=== PATIENT | female | born 1940 | race Caucasian/White ===

== ENCOUNTER 2021-01-03 09:18 | Inpatient (IN) | payer MEDICARE, BC ==
[2021-01-03 09:52] LABS: Actual Bicarbonate (HCO3a) 20.9 mEq/L (22-28); Base Excess (BEa) -9.4 mEq/L (-2.0 to +3.0); Carboxyhemoglobin (COHb) 0.5 gm% (0.0-3.0); Hemoglobin (Hb) 12.5 g/dL (12.0-16.0); O2 Tension (PaO2), arterial 91.2 mmHg (> 60.0); Potassium - ABG Lab 5.8 mmol/L (3.70-5.30); Puncture Site LRA; pH, Arterial 7.11 (7.35-7.45)
[2021-01-03 10:00] LABS: #Basophils 0.1 10x3/uL (0.0-0.2); #Eosinphils 0.1 10x3/uL (0.0-0.5); #Monocytes 1.4 10x3/uL (0.0-1.1); #Neutrophils 7.9 10x3/uL (1.5-8.4); %Basophils 0.7 % (0.0-2.0); %Eosinophils 0.6 % (0.0-6.0); %Lymphocytes 21.4 % (18.0-47.0); %Monocytes 11.4 % (0.0-10.0); %Neutrophils 64.8 % (40.0-75.0); Hemoglobin 11.5 g/dL (12.0-15.5); Mean Corpuscular HGB CONC 29.3 g/dL (32.0-36.0); Mean Corpuscular Hemoglobin 29.3 pg (27.0-33.0); Platelet Count 461 10x3/uL (150-450); RBC Distribution Width 15.6 % (11.5-14.5); Red Blood Cell (RBC) Count 3.92 10x6/uL (3.90-5.03); White Blood Cell (WBC) Count 12.2 10x3/uL (3.5-10.5)
[2021-01-03 10:02] LABS: ALT (SGPT) 14 U/L (8-55); AST (SGOT) 29 U/L (5-34); Albumin 3.2 g/dL (3.4-4.8); Alkaline Phosphatase 125 U/L (40-110); Anion Gap 19 mmol/L (10-20); BUN (Urea Nitrogen) 58 mg/dL (9.8-20.1); Bilirubin, Total 0.3 mg/dL (0.2-1.2); Calc. Creatinine Clearance 0 mL/min (70-130); Calcium 7.9 mg/dL (7.8-10.44); Carbon Dioxide 21 mmol/L (23-31); Chloride 101 mmol/L (98-107); Globulin 2.4 g/dL (2.4-3.5); Glucose 135 mg/dL (83-110); Potassium 6.4 mmol/L (3.5-5.1); Protein, Total 5.6 g/dL (5.8-8.1); Sodium 135 mmol/L (136-145)
[2021-01-03 10:03] LABS: INR-International Normal Ratio 1.1; PTT 30.8 sec (22.0-33.0); Prothrombin Time 11.2 sec (9.5-12.1)
[2021-01-03 10:47] LABS: Bilirubin Neg (Negative); Blood, Urine 25 (Negative); Clarity Cloudy (Clear); Glucose, Urine (Dipstick) Normal (Negative); Ketone, Urine Negative (Negative); Leukocyte 500 (Negative); Nitrite Negative (Negative); Protein, Urine (Dipstick) 100 mg/dl (Neg-Trace); Specific Gravity, Urine 1.025 (1.002-1.036); Urobilinogen Normal mg/dL (Less than 2)
[2021-01-03 11:11] LABS: Hypochromia SLIGHT = 6-15 cells (100X) (0-5/hpf); Platelet Morphology Comment Appears Increased
[2021-01-03 11:27] LABS: SARS-CoV-2 NAA Rapid Test Not Detected (NotDetected)
[2021-01-03 11:37] LABS: WBC/HPF Greater Than 50 HPF (0-3)
[2021-01-03 11:39] LABS: Bacteria/HPF Rare-Few HPF (None Seen)
[2021-01-03] MEDS ORDERED: Aspirin 325 MG TAB ONE (12:01)
[2021-01-03] MEDS ORDERED: Calcium Chloride 1 GM/10 ML Abboject SYRINGE ONE (12:01)
[2021-01-03] MEDS ORDERED: Nitroglycerin 2% Ointment 1 INCH/1 GM Packet ONE (12:01)
[2021-01-03] MEDS ORDERED: Furosemide 40 MG/4 ML VIAL ONE (12:01)
[2021-01-03] MEDS ORDERED: Insulin Regular 300 UNITS/3 ML VIAL ONE (12:07)
[2021-01-03 12:44] LABS: Actual Bicarbonate (HCO3a) 21.9 mEq/L (22-28); CO2 Tension 60.9 mmHg (35.0-45.0); Calcium, Ionized (arterial) 1.43 mmol/L (1.12-1.30); Carboxyhemoglobin (COHb) 0.2 gm% (0.0-3.0); Hemoglobin (Hb) 11.8 g/dL (12.0-16.0); O2 Tension (PaO2), arterial 88.4 mmHg (> 60.0); Potassium - ABG Lab 5.6 mmol/L (3.70-5.30); Puncture Site LRA; pH, Arterial 7.17 (7.35-7.45)
[2021-01-03 12:45] LABS: ALV-art Gradient 85.025 mmHg (0-20)
[2021-01-03 13:07] LABS: Troponin I 0.016 ng/mL (< 0.028)
[2021-01-03] MEDS ORDERED: Dextrose 50% Abboject 50 ML SYRINGE SLOW IVP PRN (14:50)
[2021-01-03] MEDS ORDERED: Ondansetron PF 4 MG/2 ML Vial IVP PRN (14:50)
[2021-01-03] MEDS ORDERED: Guaifenesin DM 100-10/5 ML UDCUP PO PRN (14:50)
[2021-01-03] MEDS ORDERED: Acetaminophen 325 MG TAB PO PRN (14:50)
[2021-01-03] MEDS ORDERED: Ondansetron ODT 4 MG TAB PO PRN (14:50)
[2021-01-03] MEDS ORDERED: Dextrose 5% in Water 1,000 ML IV PRN (14:50)
[2021-01-03] MEDS ORDERED: hydrALAZINE 20 MG/ML VIAL SLOW IVP PRN (14:50)
[2021-01-03] MEDS ORDERED: Furosemide 40 MG/4 ML VIAL SLOW IVP SCH (16:00)
[2021-01-03 16:08] LABS: Anion Gap 18 mmol/L (10-20); BUN (Urea Nitrogen) 60 mg/dL (9.8-20.1); Calc. Creatinine Clearance 40 mL/min (70-130); Calcium 8.1 mg/dL (7.8-10.44); Carbon Dioxide 19 mmol/L (23-31); Chloride 104 mmol/L (98-107); Glucose 145 mg/dL (83-110); Sodium 134 mmol/L (136-145)
[2021-01-03 16:13] LABS: Troponin I 0.018 ng/mL (< 0.028)
[2021-01-03 16:16] LABS: Potassium 6.7 mmol/L (3.5-5.1)
[2021-01-03 17:27] LABS: Actual Bicarbonate (HCO3a) 20.2 mEq/L (22-28); Base Excess (BEa) -7.5 mEq/L (-2.0 to +3.0); CO2 Tension 50.7 mmHg (35.0-45.0); Calcium, Ionized (arterial) 1.19 mmol/L (1.12-1.30); Carboxyhemoglobin (COHb) 0.3 gm% (0.0-3.0); Hemoglobin (Hb) 12.1 g/dL (12.0-16.0); O2 Tension (PaO2), arterial 152.2 mmHg (> 60.0); Potassium - ABG Lab 5.6 mmol/L (3.70-5.30); Puncture Site RRA; pH, Arterial 7.22 (7.35-7.45)
[2021-01-03 17:28] LABS: ALV-art Gradient 69.625 mmHg (0-20)
[2021-01-03] MEDS: Budesonide 0.25 MG/2 ML NEB INH SCH (19:52)
[2021-01-03 20:53] LABS: Hep B Surf Ag Non-Reactive S/CO (NonReactive)
[2021-01-03] MEDS ORDERED: Famotidine 20 MG TAB PO SCH (21:00)
[2021-01-03 21:52] LABS: HBSAg Index 0.16 S/CO (0-0.99)
[2021-01-03] MEDS: Atorvastatin Calcium 20 MG TAB PO SCH (22:30)
[2021-01-03] MEDS ORDERED: Famotidine/PF 20 mg/2ml Vial SLOW IVP SCH (23:00)
[2021-01-04 04:35] LABS: Anion Gap 16 mmol/L (10-20); BUN (Urea Nitrogen) 53 mg/dL (9.8-20.1); Calc. Creatinine Clearance 41 mL/min (70-130); Calcium 8.1 mg/dL (7.8-10.44); Carbon Dioxide 23 mmol/L (23-31); Chloride 102 mmol/L (98-107); Glucose 112 mg/dL (83-110); Potassium 5.4 mmol/L (3.5-5.1); Sodium 136 mmol/L (136-145)
[2021-01-04 04:40] LABS: #Basophils 0.1 10x3/uL (0.0-0.2); #Eosinphils 0.1 10x3/uL (0.0-0.5); #Monocytes 1.5 10x3/uL (0.0-1.1); #Neutrophils 8.6 10x3/uL (1.5-8.4); %Basophils 0.6 % (0.0-2.0); %Lymphocytes 15.3 % (18.0-47.0); %Monocytes 12.3 % (0.0-10.0); Hemoglobin 10.6 g/dL (12.0-15.5); Mean Corpuscular HGB CONC 31.1 g/dL (32.0-36.0); Mean Corpuscular Volume 96.6 fl (81.6-98.3); Platelet Count 403 10x3/uL (150-450); RBC Distribution Width 15.5 % (11.5-14.5); Red Blood Cell (RBC) Count 3.53 10x6/uL (3.90-5.03); White Blood Cell (WBC) Count 12.3 10x3/uL (3.5-10.5)
[2021-01-04] MEDS: Furosemide 40 MG/4 ML VIAL SLOW IVP SCH ×2 (06:03→14:49)
[2021-01-04] MEDS ORDERED: Albumin 25% 25 GM/100 ML BOT IVPB PRN (08:31)
[2021-01-04] MEDS: Aspirin 81 mg Enteric Coated Tablet PO SCH (08:36)
[2021-01-04] MEDS: Budesonide 0.25 MG/2 ML NEB INH SCH ×2 (08:37→19:30)
[2021-01-04] MEDS: Famotidine/PF 20 mg/2ml Vial SLOW IVP SCH (08:38)
[2021-01-04] MEDS ORDERED: FLU VACC QS2020-21(65YR UP)/PF 240 MCG/0.7 ML SYRINGE IM ONE (09:00)
[2021-01-04] MEDS ORDERED: Enoxaparin Sodium 30 MG/0.3 ML SYRINGE SC SCH (09:00)
[2021-01-04 10:51] LABS: HBSAB Concentration Less than 8.00 mIU/mL; Hep B Core Total Ab Non-Reactive (NonReactive); Hep B Core Total Index 0.11 S/CO (0-0.79); Hep B Surf AB Non-Reactive (NonReactive); Hep C IgG Ab Non-Reactive (NonReactive); Hep C Index 0.07 S/CO (0-0.79)
[2021-01-04] MEDS: Heparin 5,000 UNITS/ML VIAL SC SCH ×2 (14:49→21:03)
[2021-01-04] MEDS: Atorvastatin Calcium 20 MG TAB PO SCH (21:03)
[2021-01-05] MEDS ORDERED: Ziprasidone 20 MG VIAL IM SCH (01:45)
[2021-01-05] MEDS ORDERED: Sterile Water 10 ML VIAL FS PRN (02:00)
[2021-01-05] MEDS: Furosemide 40 MG/4 ML VIAL SLOW IVP SCH (05:57)
[2021-01-05] MEDS: Budesonide 0.25 MG/2 ML NEB INH SCH ×2 (08:22→22:50)
[2021-01-05] MEDS ORDERED: Albumin 25% 25 GM/100 ML BOT IVPB PRN (08:34)
[2021-01-05] MEDS: Aspirin 81 mg Enteric Coated Tablet PO SCH (08:39)
[2021-01-05] MEDS: Heparin 5,000 UNITS/ML VIAL SC SCH ×2 (08:39→20:42)
[2021-01-05] MEDS: Famotidine/PF 20 mg/2ml Vial SLOW IVP SCH (08:39)
[2021-01-05] MEDS: Atorvastatin Calcium 20 MG TAB PO SCH (21:00)
[2021-01-06 05:45] LABS: Anion Gap 17 mmol/L (10-20); BUN (Urea Nitrogen) 27 mg/dL (9.8-20.1); Calc. Creatinine Clearance 47 mL/min (70-130); Calcium 8.7 mg/dL (7.8-10.44); Carbon Dioxide 25 mmol/L (23-31); Chloride 102 mmol/L (98-107); Glucose 100 mg/dL (83-110); Potassium 4.6 mmol/L (3.5-5.1); Sodium 139 mmol/L (136-145)
[2021-01-06] MEDS: Budesonide 0.25 MG/2 ML NEB INH SCH ×2 (07:35→19:50)
[2021-01-06] MEDS: Heparin 5,000 UNITS/ML VIAL SC SCH ×2 (07:54→20:05)
[2021-01-06] MEDS: Aspirin 81 mg Enteric Coated Tablet PO SCH (07:54)
[2021-01-06] MEDS: Famotidine/PF 20 mg/2ml Vial SLOW IVP SCH (07:54)
[2021-01-06] MEDS ORDERED: Albumin 25% 25 GM/100 ML BOT IVPB PRN (12:23)
[2021-01-06] MEDS: Acetaminophen 650 MG Suppository PR PRN (19:59)
[2021-01-06] MEDS: Atorvastatin Calcium 20 MG TAB PO SCH (20:06)
[2021-01-07] MEDS ORDERED: Morphine 2 MG/ML VIAL SLOW IVP SCH (00:15)
[2021-01-07 05:45] LABS: Anion Gap 14 mmol/L (10-20); BUN (Urea Nitrogen) 20 mg/dL (9.8-20.1); Calc. Creatinine Clearance 53 mL/min (70-130); Calcium 8.5 mg/dL (7.8-10.44); Carbon Dioxide 27 mmol/L (23-31); Chloride 100 mmol/L (98-107); Glucose 102 mg/dL (83-110); Potassium 3.6 mmol/L (3.5-5.1); Sodium 137 mmol/L (136-145)
[2021-01-07 06:01] LABS: Hemoglobin 9.8 g/dL (12.0-15.5); Mean Corpuscular HGB CONC 30.1 g/dL (32.0-36.0); Mean Corpuscular Hemoglobin 29.4 pg (27.0-33.0); Mean Corpuscular Volume 97.9 fl (81.6-98.3); Mean Platelet Volume 10.6 fl (7.4-10.4); Platelet Count 268 10x3/uL (150-450); RBC Distribution Width 15.6 % (11.5-14.5); Red Blood Cell (RBC) Count 3.33 10x6/uL (3.90-5.03); White Blood Cell (WBC) Count 17.6 10x3/uL (3.5-10.5)
[2021-01-07] MEDS: Acetaminophen 650 MG Suppository PR PRN (06:15)
[2021-01-07 07:11] LABS: Band 3 % (5-11); Lymphocytes 14 % (21-51); Monocytes 23 % (0-10); Neutrophil 53 % (42-75); Reactive Lymphocytes 7 % (0-10)
[2021-01-07 07:13] LABS: Anisocytosis SLIGHT = 6-15 cells (100X) (0-5/hpf); Microcytosis SLIGHT = 6-15 cells (100X) (0-5/hpf); Poikilocytosis SLIGHT = 6-15 cells (100X) (0-5/hpf)
[2021-01-07 07:26] LABS: Burr Cells SLIGHT = 2-5 cells (100X) (0-1/hpf)
[2021-01-07 07:27] LABS: Ovalocytes SLIGHT = 2-5 cells (100X) (0-1/hpf)
[2021-01-07 07:28] LABS: Large Platelets SLIGHT; Manual Diff?? YES; Platelet Clumps SLIGHT; Platelet Morphology Comment Appears Adequate
[2021-01-07 07:29] LABS: MDiff Complete? YES
[2021-01-07] MEDS: Heparin 5,000 UNITS/ML VIAL SC SCH ×2 (07:58→19:48)
[2021-01-07] MEDS: Famotidine/PF 20 mg/2ml Vial SLOW IVP SCH (07:58)
[2021-01-07] MEDS: Budesonide 0.25 MG/2 ML NEB INH SCH ×2 (10:43→19:45)
[2021-01-07] MEDS ORDERED: Sodium Chloride 0.9% 500 ML IV SCH (12:15)
[2021-01-07 13:20] LABS: Bilirubin Neg (Negative); Blood, Urine 150 (Negative); Glucose, Urine (Dipstick) 50 mg/dL (Negative); Ketone, Urine 15 mg/dL (Negative); Leukocyte 25 (Negative); Nitrite Negative (Negative); Protein, Urine (Dipstick) 500 mg/dl (Neg-Trace); Urobilinogen Normal mg/dL (Less than 2)
[2021-01-07 13:22] LABS: Clarity Slightly Cloudy (Clear)
[2021-01-07 13:40] LABS: WBC/HPF 21-50 HPF (0-3)
[2021-01-07 13:41] LABS: Bacteria/HPF Rare-Few HPF (None Seen); Squamous Epithelial 0-3 HPF (0-3)
[2021-01-07 13:42] LABS: Urine Culture Reflex Yes Yes
[2021-01-07] MEDS: Albumin 25% 100 ML IVPB SCH ×2 (14:39→14:40)
[2021-01-07] MEDS: Amoxicillin/Potassium Clav 875 MG TAB PO SCH ×2 (14:59→19:59)
[2021-01-07] MEDS: Aspirin 81 mg Enteric Coated Tablet PO SCH (14:59)
[2021-01-07] MEDS ORDERED: Norepinephrine 8 MG/0.9% NS 250 ML ONE (17:13)
[2021-01-07] MEDS: Atorvastatin Calcium 20 MG TAB PO SCH (19:48)
[2021-01-07] MEDS ORDERED: Metoprolol Tartrate 5 MG/5 ML VIAL IVP SCH (21:00)
[2021-01-08 04:53] LABS: Anion Gap 18 mmol/L (10-20); BUN (Urea Nitrogen) 33 mg/dL (9.8-20.1); Calc. Creatinine Clearance 38 mL/min (70-130); Calcium 8.8 mg/dL (7.8-10.44); Carbon Dioxide 22 mmol/L (23-31); Chloride 101 mmol/L (98-107); Glucose 154 mg/dL (83-110); Potassium 5.3 mmol/L (3.5-5.1); Sodium 136 mmol/L (136-145)
[2021-01-08 05:54] LABS: #Basophils 0.1 10x3/uL (0.0-0.2); #Eosinphils 0.2 10x3/uL (0.0-0.5); #Monocytes 2.8 10x3/uL (0.0-1.1); #Neutrophils 10.8 10x3/uL (1.5-8.4); %Basophils 0.5 % (0.0-2.0); %Lymphocytes 18.1 % (18.0-47.0); %Neutrophils 62.5 % (40.0-75.0); Hemoglobin 10.2 g/dL (12.0-15.5); Mean Corpuscular HGB CONC 30.6 g/dL (32.0-36.0); Mean Corpuscular Hemoglobin 29.1 pg (27.0-33.0); Mean Corpuscular Volume 94.9 fl (81.6-98.3); Mean Platelet Volume 10.7 fl (7.4-10.4); Platelet Count 329 10x3/uL (150-450); RBC Distribution Width 15.8 % (11.5-14.5); Red Blood Cell (RBC) Count 3.51 10x6/uL (3.90-5.03); White Blood Cell (WBC) Count 17.2 10x3/uL (3.5-10.5)
[2021-01-08] MEDS: Budesonide 0.25 MG/2 ML NEB INH SCH ×2 (06:47→19:27)
[2021-01-08] MEDS ORDERED: Potassium Chloride 20 MEQ TAB PO SCH (08:00)
[2021-01-08] MEDS: Aspirin 81 mg Enteric Coated Tablet PO SCH (08:08)
[2021-01-08] MEDS: Heparin 5,000 UNITS/ML VIAL SC SCH ×2 (08:08→21:37)
[2021-01-08] MEDS: Famotidine/PF 20 mg/2ml Vial SLOW IVP SCH (08:09)
[2021-01-08 08:36] LABS: Actual Bicarbonate (HCO3a) 27.2 mEq/L (22-28); Base Excess (BEa) 0.9 mEq/L (-2.0 to +3.0); CO2 Tension 51.6 mmHg (35.0-45.0); Calcium, Ionized (arterial) 1.23 mmol/L (1.12-1.30); Carboxyhemoglobin (COHb) 0.4 gm% (0.0-3.0); O2 Tension (PaO2), arterial 60.9 mmHg (> 60.0); Potassium - ABG Lab 3.5 mmol/L (3.70-5.30); Puncture Site RRA; RapidComm Collect By EA; pH, Arterial 7.34 (7.35-7.45)
[2021-01-08] MEDS: Meropenem 500 MG in Sodium Chloride 0.9% 100 ML IVPB SCH ×2 (08:46→21:37)
[2021-01-08] MEDS ORDERED: Metoprolol Tartrate 25 MG TAB PER TUBE SCH (09:00)
[2021-01-08] MEDS ORDERED: Metoprolol Tartrate 5 MG/5 ML VIAL IVP SCH (09:00)
[2021-01-08 09:15] LABS: Lactic Acid 1.1 mmol/L (0.5-2.2)
[2021-01-08] MEDS ORDERED: Sodium Bicarbonate 2.5 MEQ/5 ML VIAL ONE (13:28)
[2021-01-08] MEDS ORDERED: VANCOMYCIN 1.25 GM/250 ML BAG IVPB SCH (15:15)
[2021-01-08] MEDS ORDERED: Glycopyrrolate 0.2 MG/ML 5 ML SYRINGE SLOW IVP ONE (15:24)
[2021-01-08] MEDS ORDERED: Vancomycin 1 GM in Premix Bag 1 BAG IVPB SCH (16:00)
[2021-01-08] MEDS ORDERED: VANCOMYCIN 2 GRAM/400 ML BAG 2 GM in Premix Bag 1 BAG IVPB SCH (16:00)
[2021-01-08] MEDS ORDERED: Vancomycin HCl 1.5 GM in Sodium Chloride 0.9% 250 ML 300 ML IVPB SCH (16:00)
[2021-01-08] MEDS ORDERED: Vancomycin HCl 750 MG in Sodium Chloride 0.9% 250 ML 250 ML IVPB SCH (16:00)
[2021-01-08] MEDS ORDERED: Vancomycin HCl 1.25 GM in Sodium Chloride 0.9% 250 ML 250 ML IVPB SCH (16:00)
[2021-01-08] MEDS ORDERED: HOLD VANCOMYCIN FOR LEVEL >20 FS SCH (16:00)
[2021-01-08] MEDS ORDERED: Propofol 1,000 MG/100 ML VIAL IV ONE (16:17)
[2021-01-08 16:26] LABS: Base Excess (BEa) -8.6 mEq/L (-2.0 to +3.0); CO2 Tension 93.5 mmHg (35.0-45.0); Calcium, Ionized (arterial) 1.28 mmol/L (1.12-1.30); Carboxyhemoglobin (COHb) 0.6 gm% (0.0-3.0); Hemoglobin (Hb) 12.7 g/dL (12.0-16.0); Potassium - ABG Lab 3.4 mmol/L (3.70-5.30); Puncture Site RBA; RapidComm Collect By EA; pH, Arterial 7.03 (7.35-7.45)
[2021-01-08] MEDS ORDERED: Fentanyl BOLUS 250 ML IVPB PRN (17:00)
[2021-01-08] MEDS ORDERED: Propofol BOLUS 1,000 MG/100 ML VIAL IV PRN (17:00)
[2021-01-08] MEDS ORDERED: fentaNYL Citrate/PF 2,000 MCG in Sodium Chloride 0.9% 60 ML IV SCH (17:00)
[2021-01-08] MEDS ORDERED: DISCONTINUE PREVIOUS NARCOTIC PAIN MEDICATIONS AND BENZODIAZEPINES FS SCH (17:00)
[2021-01-08] MEDS ORDERED: Morphine 2 MG/ML VIAL SLOW IVP PRN (17:00)
[2021-01-08] MEDS ORDERED: Lorazepam 2 MG/ML VIAL SLOW IVP PRN (17:00)
[2021-01-08] MEDS: Amoxicillin/Potassium Clav 875 MG TAB PO SCH (17:05)
[2021-01-08] MEDS: Scopolamine 1.5 mg/72 hour Patch TD SCH (17:07)
[2021-01-08 17:32] LABS: Anion Gap 19 mmol/L (10-20); BUN (Urea Nitrogen) 38 mg/dL (9.8-20.1); Calc. Creatinine Clearance 33 mL/min (70-130); Carbon Dioxide 23 mmol/L (23-31); Chloride 101 mmol/L (98-107); Glucose 180 mg/dL (83-110); Potassium 5.2 mmol/L (3.5-5.1); Sodium 138 mmol/L (136-145)
[2021-01-08 17:43] LABS: Actual Bicarbonate (HCO3a) 25.7 mEq/L (22-28); Base Excess (BEa) -2.7 mEq/L (-2.0 to +3.0); CO2 Tension 61.8 mmHg (35.0-45.0); Calcium, Ionized (arterial) 1.23 mmol/L (1.12-1.30); Carboxyhemoglobin (COHb) 0.3 gm% (0.0-3.0); Hemoglobin (Hb) 12.7 g/dL (12.0-16.0); Potassium - ABG Lab 3.6 mmol/L (3.70-5.30); Puncture Site RRA; RapidComm Collect By EA; pH, Arterial 7.24 (7.35-7.45)
[2021-01-08 17:56] LABS: CKMB 0.6 ng/mL (0-6.6)
[2021-01-08] MEDS: Norepinephrine 8 MG/0.9% NS 250 ML IVPB SCH (19:06)
[2021-01-08 20:32] LABS: Body Fluid Source Thoracentesis Fluid; Tube # EDTA
[2021-01-08 20:33] LABS: BF Color Yellow; Clarity Hazy (Clear)
[2021-01-08] MEDS: Atorvastatin Calcium 20 MG TAB PO SCH (21:37)
[2021-01-08 22:15] LABS: Pleural Fluid, Protein 2.5 g/dL
[2021-01-08 22:47] LABS: Hemoglobin 11.7 g/dL (12.0-15.5); Mean Corpuscular HGB CONC 29.1 g/dL (32.0-36.0); Mean Corpuscular Hemoglobin 29.5 pg (27.0-33.0); Mean Corpuscular Volume 101.3 fl (81.6-98.3); Mean Platelet Volume 10.8 fl (7.4-10.4); Platelet Count 360 10x3/uL (150-450); RBC Distribution Width 15.8 % (11.5-14.5); Red Blood Cell (RBC) Count 3.97 10x6/uL (3.90-5.03); White Blood Cell (WBC) Count 34.9 10x3/uL (3.5-10.5)
[2021-01-08] MEDS: Propofol 1,000 MG/100 ML VIAL IV PRN (23:37)
[2021-01-08 23:47] LABS: Band 1 % (5-11); Eosinophils 1 % (0-10); Lymphocytes 19 % (21-51); Monocytes 18 % (0-10); Myelocyte 1 % (0-0); Neutrophil 33 % (42-75); Reactive Lymphocytes 27 % (0-10)
[2021-01-08 23:49] LABS: Anisocytosis MODERATE=16-30 cells (100X) (0-5/hpf); Hypochromia SLIGHT = 6-15 cells (100X) (0-5/hpf); Macrocytosis MODERATE=16-30 cells (100X) (0-5/hpf); Poikilocytosis MODERATE=16-30 cells (100X) (0-5/hpf)
[2021-01-08 23:50] LABS: Microcytosis SLIGHT = 6-15 cells (100X) (0-5/hpf)
[2021-01-08 23:52] LABS: Ovalocytes SLIGHT = 2-5 cells (100X) (0-1/hpf)
[2021-01-08 23:53] LABS: Burr Cells MODERATE= 6-15 cells (100X) (0-1/hpf); Giant Platelets SLIGHT; Helmet Cells SLIGHT = 2-5 cells (100X) (0-1/hpf); Large Platelets MODERATE; Platelet Clumps MODERATE; Vacuoles MODERATE
[2021-01-08 23:54] LABS: Platelet Morphology Comment Appears Adequate
[2021-01-08 23:55] LABS: MDiff Complete? YES; Manual Diff?? YES
[2021-01-09 04:30] LABS: Anion Gap 21 mmol/L (10-20); BUN (Urea Nitrogen) 45 mg/dL (9.8-20.1); Calc. Creatinine Clearance 32 mL/min (70-130); Calcium 8.8 mg/dL (7.8-10.44); Carbon Dioxide 22 mmol/L (23-31); Chloride 100 mmol/L (98-107); Glucose 173 mg/dL (83-110); Potassium 3.9 mmol/L (3.5-5.1); Sodium 139 mmol/L (136-145)
[2021-01-09 04:41] LABS: Hemoglobin 12.5 g/dL (12.0-15.5); Mean Corpuscular HGB CONC 31.6 g/dL (32.0-36.0); Mean Corpuscular Hemoglobin 29.8 pg (27.0-33.0); Mean Corpuscular Volume 94.5 fl (81.6-98.3); Mean Platelet Volume 10.3 fl (7.4-10.4); Platelet Count 427 10x3/uL (150-450); RBC Distribution Width 15.4 % (11.5-14.5); Red Blood Cell (RBC) Count 4.19 10x6/uL (3.90-5.03); White Blood Cell (WBC) Count 27.7 10x3/uL (3.5-10.5)
[2021-01-09 05:10] LABS: Band 16 % (5-11); Lymphocytes 3 % (21-51); Monocytes 16 % (0-10); Reactive Lymphocytes 9 % (0-10)
[2021-01-09 05:11] LABS: Anisocytosis SLIGHT = 6-15 cells (100X) (0-5/hpf); Burr Cells SLIGHT = 2-5 cells (100X) (0-1/hpf); Neutrophil 56 % (42-75); Poikilocytosis SLIGHT = 6-15 cells (100X) (0-5/hpf)
[2021-01-09 05:12] LABS: Giant Platelets SLIGHT; Large Platelets MODERATE; Microcytosis SLIGHT = 6-15 cells (100X) (0-5/hpf); Platelet Morphology Comment Appears Increased; Vacuoles SLIGHT
[2021-01-09 05:15] LABS: MDiff Complete? YES; Manual Diff?? YES
[2021-01-09] MEDS: Norepinephrine 8 MG/0.9% NS 250 ML IVPB SCH ×2 (05:55→18:18)
[2021-01-09] MEDS: Propofol 1,000 MG/100 ML VIAL IV PRN (05:55)
[2021-01-09 07:01] LABS: ALV-art Gradient 497.125 mmHg (0-20)
[2021-01-09] MEDS: Budesonide 0.25 MG/2 ML NEB INH SCH ×2 (07:49→20:02)
[2021-01-09] MEDS: Aspirin 81 mg Enteric Coated Tablet PO SCH (08:31)
[2021-01-09] MEDS: Famotidine/PF 20 mg/2ml Vial SLOW IVP SCH (08:31)
[2021-01-09] MEDS: Meropenem 500 MG in Sodium Chloride 0.9% 100 ML IVPB SCH ×2 (08:31→21:42)
[2021-01-09] MEDS: Heparin 5,000 UNITS/ML VIAL SC SCH ×2 (09:06→21:42)
[2021-01-09 10:46] LABS: Actual Bicarbonate (HCO3a) 20.4 mEq/L (22-28); Base Excess (BEa) -3.8 mEq/L (-2.0 to +3.0); CO2 Tension 34.5 mmHg (35.0-45.0); Calcium, Ionized (arterial) 1.18 mmol/L (1.12-1.30); Carboxyhemoglobin (COHb) 0.1 gm% (0.0-3.0); Hemoglobin (Hb) 12.9 g/dL (12.0-16.0); O2 Tension (PaO2), arterial 91.5 mmHg (> 60.0); Potassium - ABG Lab 3.7 mmol/L (3.70-5.30); Puncture Site LBA; pH, Arterial 7.39 (7.35-7.45)
[2021-01-09 10:47] LABS: ALV-art Gradient 221.875 mmHg (0-20)
[2021-01-09] MEDS ORDERED: Fentanyl CADD 100 ML ONE (13:28)
[2021-01-09 13:31] LABS: Actual Bicarbonate (HCO3a) 21.8 mEq/L (22-28); Base Excess (BEa) -3.7 mEq/L (-2.0 to +3.0); CO2 Tension 41.3 mmHg (35.0-45.0); Calcium, Ionized (arterial) 1.18 mmol/L (1.12-1.30); Carboxyhemoglobin (COHb) 0.3 gm% (0.0-3.0); Hemoglobin (Hb) 12.7 g/dL (12.0-16.0); O2 Tension (PaO2), arterial 80.7 mmHg (> 60.0); Potassium - ABG Lab 3.7 mmol/L (3.70-5.30); Puncture Site LRA; pH, Arterial 7.34 (7.35-7.45)
[2021-01-09 13:32] LABS: ALV-art Gradient 152.875 mmHg (0-20)
[2021-01-09 20:27] LABS: Anion Gap 18 mmol/L (10-20); BUN (Urea Nitrogen) 53 mg/dL (9.8-20.1); Calc. Creatinine Clearance 25 mL/min (70-130); Calcium 8.6 mg/dL (7.8-10.44); Carbon Dioxide 24 mmol/L (23-31); Chloride 100 mmol/L (98-107); Glucose 198 mg/dL (83-110); Magnesium 1.8 mg/dL (1.6-2.6); Potassium 3.9 mmol/L (3.5-5.1); Sodium 138 mmol/L (136-145)
[2021-01-09 20:32] LABS: Troponin I 0.275 ng/mL (< 0.028)
[2021-01-09] MEDS: Atorvastatin Calcium 20 MG TAB PO SCH (21:42)
[2021-01-09] MEDS: HumaLOG 300 UNITS/3 ML VIAL SC PRN (21:57)
[2021-01-09 23:41] LABS: Troponin I 0.211 ng/mL (< 0.028)
[2021-01-10 04:11] LABS: Hemoglobin 10.5 g/dL (12.0-15.5); Mean Corpuscular HGB CONC 31.3 g/dL (32.0-36.0); Mean Corpuscular Hemoglobin 29.2 pg (27.0-33.0); Mean Corpuscular Volume 93.3 fl (81.6-98.3); Mean Platelet Volume 10.6 fl (7.4-10.4); Platelet Count 388 10x3/uL (150-450); RBC Distribution Width 15.6 % (11.5-14.5); Red Blood Cell (RBC) Count 3.59 10x6/uL (3.90-5.03); White Blood Cell (WBC) Count 20.1 10x3/uL (3.5-10.5)
[2021-01-10 04:22] LABS: Anion Gap 19 mmol/L (10-20); BUN (Urea Nitrogen) 62 mg/dL (9.8-20.1); Calc. Creatinine Clearance 23 mL/min (70-130); Calcium 8.7 mg/dL (7.8-10.44); Carbon Dioxide 24 mmol/L (23-31); Chloride 100 mmol/L (98-107); Glucose 206 mg/dL (83-110); Potassium 3.9 mmol/L (3.5-5.1); Sodium 139 mmol/L (136-145)
[2021-01-10 04:34] LABS: Vancomycin, Random 16.1 ug/mL (See Comment)
[2021-01-10 05:10] LABS: MDiff Complete? YES
[2021-01-10 05:16] LABS: Band 2 % (5-11); Neutrophil 60 % (42-75)
[2021-01-10 05:17] LABS: Eosinophils 2 % (0-10); Lymphocytes 23 % (21-51); Metamyelocyte 2 % (0-0); Monocytes 11 % (0-10)
[2021-01-10 05:18] LABS: Anisocytosis MODERATE=16-30 cells (100X) (0-5/hpf); Hypochromia SLIGHT = 6-15 cells (100X) (0-5/hpf); Platelet Morphology Comment Appears Adequate; Poikilocytosis MODERATE=16-30 cells (100X) (0-5/hpf)
[2021-01-10] MEDS: HumaLOG 300 UNITS/3 ML VIAL SC PRN ×2 (06:57→21:55)
[2021-01-10] MEDS: Budesonide 0.25 MG/2 ML NEB INH SCH ×2 (08:01→19:50)
[2021-01-10] MEDS: Famotidine/PF 20 mg/2ml Vial SLOW IVP SCH (08:32)
[2021-01-10] MEDS: Heparin 5,000 UNITS/ML VIAL SC SCH ×2 (08:32→21:27)
[2021-01-10] MEDS: Meropenem 500 MG in Sodium Chloride 0.9% 100 ML IVPB SCH ×2 (08:32→21:27)
[2021-01-10] MEDS: Aspirin 81 mg Enteric Coated Tablet PO SCH (08:33)
[2021-01-10] MEDS ORDERED: Albumin 25% 25 GM/100 ML BOT IVPB PRN (08:35)
[2021-01-10] MEDS ORDERED: Heparin 10,000 UNITS/ 10 ML VIAL SLOW IVP SCH (10:15)
[2021-01-10] MEDS ORDERED: Activase 2 MG VIAL CATH SCH ×2 (10:15→14:30)
[2021-01-10] MEDS ORDERED: Sterile Water 10 ML VIAL FS SCH (10:15)
[2021-01-10] MEDS: Norepinephrine 8 MG/0.9% NS 250 ML IVPB SCH ×2 (10:26→18:34)
[2021-01-10 13:44] LABS: Actual Bicarbonate (HCO3a) 27.1 mEq/L (22-28); Base Excess (BEa) -0.3 mEq/L (-2.0 to +3.0); CO2 Tension 57.2 mmHg (35.0-45.0); Calcium, Ionized (arterial) 1.24 mmol/L (1.12-1.30); Carboxyhemoglobin (COHb) 0.3 gm% (0.0-3.0); Hemoglobin (Hb) 11.6 g/dL (12.0-16.0); O2 Tension (PaO2), arterial 97.5 mmHg (> 60.0); Potassium - ABG Lab 3.9 mmol/L (3.70-5.30); Puncture Site LRA; pH, Arterial 7.29 (7.35-7.45)
[2021-01-10] MEDS ORDERED: Vancomycin HCl 750 MG in Sodium Chloride 0.9% 250 ML 250 ML IVPB SCH ×2 (15:00→19:00)
[2021-01-10] MEDS ORDERED: VANCOMYCIN 1.25 GM/250 ML BAG 1.25 GM in Premix Bag 1 BAG IVPB SCH (19:00)
[2021-01-10] MEDS ORDERED: HOLD VANCOMYCIN FOR LEVEL >20 FS SCH (19:00)
[2021-01-10] MEDS ORDERED: Vancomycin 1 GM in Premix Bag 1 BAG IVPB SCH (19:00)
[2021-01-10] MEDS ORDERED: Vancomycin 1.5 GRAM/300 ML BAG 1.5 GM in Premix Bag 1 BAG IVPB SCH (19:00)
[2021-01-10] MEDS: Atorvastatin Calcium 20 MG TAB PO SCH (21:27)
[2021-01-10] MEDS ORDERED: Fentanyl CADD 100 ML ONE (22:21)
[2021-01-11 03:32] LABS: Base Excess (BEa) -1.6 mEq/L (-2.0 to +3.0); CO2 Tension 50.7 mmHg (35.0-45.0); Calcium, Ionized (arterial) 1.25 mmol/L (1.12-1.30); Hemoglobin (Hb) 10.5 g/dL (12.0-16.0); O2 Tension (PaO2), arterial 118.1 mmHg (> 60.0); Potassium - ABG Lab 3.6 mmol/L (3.70-5.30); Puncture Site RRA; pH, Arterial 7.31 (7.35-7.45)
[2021-01-11 03:33] LABS: ALV-art Gradient 103.725 mmHg (0-20)
[2021-01-11 04:08] LABS: #Basophils 0.2 10x3/uL (0.0-0.2); #Eosinphils 0.5 10x3/uL (0.0-0.5); %Basophils 0.7 % (0.0-2.0); %Eosinophils 2.5 % (0.0-6.0); %Monocytes 14.2 % (0.0-10.0); %Neutrophils 61.5 % (40.0-75.0); Hemoglobin 9.5 g/dL (12.0-15.5); Mean Corpuscular Hemoglobin 29.1 pg (27.0-33.0); Mean Corpuscular Volume 93.9 fl (81.6-98.3); Mean Platelet Volume 10.1 fl (7.4-10.4); Platelet Count 363 10x3/uL (150-450); RBC Distribution Width 15.4 % (11.5-14.5); Red Blood Cell (RBC) Count 3.26 10x6/uL (3.90-5.03); White Blood Cell (WBC) Count 21.1 10x3/uL (3.5-10.5)
[2021-01-11] MEDS: Norepinephrine 8 MG/0.9% NS 250 ML IVPB SCH ×2 (05:25→23:30)
[2021-01-11] MEDS: HumaLOG 300 UNITS/3 ML VIAL SC PRN ×3 (06:43→16:42)
[2021-01-11] MEDS: Budesonide 0.25 MG/2 ML NEB INH SCH ×2 (07:45→18:53)
[2021-01-11] MEDS ORDERED: Meropenem 500 MG VIAL ONE (08:09)
[2021-01-11] MEDS: Famotidine/PF 20 mg/2ml Vial SLOW IVP SCH (08:13)
[2021-01-11] MEDS: Aspirin 81 mg Enteric Coated Tablet PO SCH (08:13)
[2021-01-11] MEDS: Meropenem 500 MG in Sodium Chloride 0.9% 100 ML IVPB SCH ×2 (08:13→20:14)
[2021-01-11] MEDS: Heparin 5,000 UNITS/ML VIAL SC SCH ×2 (08:13→20:14)
[2021-01-11] MEDS ORDERED: Albumin 25% 25 GM/100 ML BOT IVPB PRN (09:32)
[2021-01-11] MEDS ORDERED: Vancomycin HCl 1 GM in Sodium Chloride 0.9% 250 ML 250 ML IVPB SCH (09:45)
[2021-01-11 11:14] LABS: Vancomycin, Random 19.6 ug/mL (See Comment)
[2021-01-11 11:15] LABS: Albumin 3.3 g/dL (3.4-4.8); Anion Gap 17 mmol/L (10-20); BUN (Urea Nitrogen) 82 mg/dL (9.8-20.1); Calc. Creatinine Clearance 20 mL/min (70-130); Carbon Dioxide 26 mmol/L (23-31); Chloride 101 mmol/L (98-107); Glucose 197 mg/dL (83-110); Phosphorus 3.7 mg/dL (2.3-4.7); Potassium 3.9 mmol/L (3.5-5.1); Sodium 140 mmol/L (136-145)
[2021-01-11 12:03] LABS: Actual Bicarbonate (HCO3a) 24.9 mEq/L (22-28); CO2 Tension 74.3 mmHg (35.0-45.0); Calcium, Ionized (arterial) 1.26 mmol/L (1.12-1.30); Carboxyhemoglobin (COHb) 0.2 gm% (0.0-3.0); Hemoglobin (Hb) 10.9 g/dL (12.0-16.0); O2 Tension (PaO2), arterial 73.6 mmHg (> 60.0); Potassium - ABG Lab 3.7 mmol/L (3.70-5.30); Puncture Site RBA; RapidComm Collect By EA; pH, Arterial 7.14 (7.35-7.45)
[2021-01-11 12:07] LABS: ALV-art Gradient 90.205 mmHg (0-20)
[2021-01-11] MEDS ORDERED: Vancomycin HCl 750 MG in Sodium Chloride 0.9% 250 ML 250 ML IVPB SCH (12:30)
[2021-01-11 14:35] LABS: Base Excess (BEa) -5.4 mEq/L (-2.0 to +3.0); CO2 Tension 69.1 mmHg (35.0-45.0); Calcium, Ionized (arterial) 1.29 mmol/L (1.12-1.30); Carboxyhemoglobin (COHb) 0.2 gm% (0.0-3.0); Hemoglobin (Hb) 10.9 g/dL (12.0-16.0); O2 Tension (PaO2), arterial 87.9 mmHg (> 60.0); Potassium - ABG Lab 3.7 mmol/L (3.70-5.30); Puncture Site LRA; RapidComm Collect By CP.AOR; pH, Arterial 7.16 (7.35-7.45)
[2021-01-11 14:38] LABS: ALV-art Gradient 110.925 mmHg (0-20)
[2021-01-11] MEDS: Scopolamine 1.5 mg/72 hour Patch TD SCH (16:42)
[2021-01-11] MEDS: Atorvastatin Calcium 20 MG TAB PO SCH (20:14)
[2021-01-11 23:11] LABS: Actual Bicarbonate (HCO3a) 26.4 mEq/L (22-28); Base Excess (BEa) -3.4 mEq/L (-2.0 to +3.0); CO2 Tension 76.3 mmHg (35.0-45.0); Calcium, Ionized (arterial) 1.28 mmol/L (1.12-1.30); Carboxyhemoglobin (COHb) 0.2 gm% (0.0-3.0); Hemoglobin (Hb) 10.7 g/dL (12.0-16.0); O2 Tension (PaO2), arterial 64.9 mmHg (> 60.0); Potassium - ABG Lab 3.9 mmol/L (3.70-5.30); Puncture Site LBA; pH, Arterial 7.16 (7.35-7.45)
[2021-01-11 23:15] LABS: ALV-art Gradient 124.925 mmHg (0-20)
[2021-01-12 04:02] LABS: Actual Bicarbonate (HCO3a) 26.6 mEq/L (22-28); Base Excess (BEa) -2.4 mEq/L (-2.0 to +3.0); CO2 Tension 70.4 mmHg (35.0-45.0); Calcium, Ionized (arterial) 1.29 mmol/L (1.12-1.30); Carboxyhemoglobin (COHb) 0.3 gm% (0.0-3.0); Hemoglobin (Hb) 10.5 g/dL (12.0-16.0); O2 Tension (PaO2), arterial 75.9 mmHg (> 60.0); Potassium - ABG Lab 3.8 mmol/L (3.70-5.30); Puncture Site RRA
[2021-01-12 05:13] LABS: Vancomycin, Random 17.2 ug/mL (See Comment)
[2021-01-12 05:15] LABS: ALT (SGPT) 12 U/L (8-55); AST (SGOT) 27 U/L (5-34); Albumin 3.1 g/dL (3.4-4.8); Alkaline Phosphatase 160 U/L (40-110); Anion Gap 17 mmol/L (10-20); BUN (Urea Nitrogen) 96 mg/dL (9.8-20.1); Bilirubin, Total 0.5 mg/dL (0.2-1.2); Calc. Creatinine Clearance 19 mL/min (70-130); Calcium 9.2 mg/dL (7.8-10.44); Carbon Dioxide 26 mmol/L (23-31); Chloride 100 mmol/L (98-107); Globulin 2.3 g/dL (2.4-3.5); Glucose 244 mg/dL (83-110); Phosphorus 4.3 mg/dL (2.3-4.7); Protein, Total 5.4 g/dL (5.8-8.1); Sodium 139 mmol/L (136-145)
[2021-01-12 05:21] LABS: Hemoglobin 9.5 g/dL (12.0-15.5); Mean Corpuscular HGB CONC 29.9 g/dL (32.0-36.0); Mean Corpuscular Hemoglobin 29.1 pg (27.0-33.0); Mean Corpuscular Volume 97.5 fl (81.6-98.3); Mean Platelet Volume 10.2 fl (7.4-10.4); Platelet Count 383 10x3/uL (150-450); Red Blood Cell (RBC) Count 3.26 10x6/uL (3.90-5.03); White Blood Cell (WBC) Count 20.3 10x3/uL (3.5-10.5)
[2021-01-12 06:39] LABS: MDiff Complete? YES
[2021-01-12 06:42] LABS: Band 5 % (5-11); Eosinophils 5 % (0-10); Lymphocytes 12 % (21-51); Monocytes 13 % (0-10); Neutrophil 63 % (42-75)
[2021-01-12 06:43] LABS: Anisocytosis SLIGHT = 6-15 cells (100X) (0-5/hpf); Hypochromia SLIGHT = 6-15 cells (100X) (0-5/hpf); Metamyelocyte 2 % (0-0); Poikilocytosis SLIGHT = 6-15 cells (100X) (0-5/hpf); Polychromasia SLIGHT = 2-3 cells (100X) (0-2/hpf)
[2021-01-12 06:44] LABS: Giant Platelets SLIGHT; Platelet Morphology Comment Appears Adequate
[2021-01-12] MEDS: Budesonide 0.25 MG/2 ML NEB INH SCH ×2 (07:07→19:11)
[2021-01-12] MEDS: Aspirin 81 mg Enteric Coated Tablet PO SCH (08:27)
[2021-01-12] MEDS: Heparin 5,000 UNITS/ML VIAL SC SCH ×2 (08:27→21:30)
[2021-01-12] MEDS: Famotidine/PF 20 mg/2ml Vial SLOW IVP SCH (08:27)
[2021-01-12] MEDS: Meropenem 500 MG in Sodium Chloride 0.9% 100 ML IVPB SCH ×2 (08:28→21:30)
[2021-01-12 09:16] LABS: ALV-art Gradient 151.975 mmHg (0-20); Actual Bicarbonate (HCO3a) 24.8 mEq/L (22-28); Base Excess (BEa) -2.9 mEq/L (-2.0 to +3.0); CO2 Tension 57.9 mmHg (35.0-45.0); Calcium, Ionized (arterial) 1.31 mmol/L (1.12-1.30); Carboxyhemoglobin (COHb) 0.3 gm% (0.0-3.0); Hemoglobin (Hb) 10.4 g/dL (12.0-16.0); O2 Tension (PaO2), arterial 96.5 mmHg (> 60.0); Potassium - ABG Lab 3.9 mmol/L (3.70-5.30); Puncture Site LRA; pH, Arterial 7.25 (7.35-7.45)
[2021-01-12 14:47] LABS: Actual Bicarbonate (HCO3a) 24.2 mEq/L (22-28); Base Excess (BEa) -3.2 mEq/L (-2.0 to +3.0); CO2 Tension 54.9 mmHg (35.0-45.0); Hemoglobin (Hb) 10.7 g/dL (12.0-16.0); O2 Tension (PaO2), arterial 313.6 mmHg (> 60.0); Potassium - ABG Lab 3.8 mmol/L (3.70-5.30); Puncture Site RRA; RapidComm Collect By EA; pH, Arterial 7.26 (7.35-7.45)
[2021-01-12 14:49] LABS: ALV-art Gradient 330.775 mmHg (0-20)
[2021-01-12] MEDS ORDERED: Heparin 10,000 UNITS/ 10 ML VIAL SLOW IVP SCH (16:15)
[2021-01-12] MEDS ORDERED: Heparin 10,000 UNITS/ 10 ML VIAL ONE (16:20)
[2021-01-12] MEDS ORDERED: Albumin 25% 0 ML ONE (16:21)
[2021-01-12] MEDS: HumaLOG 300 UNITS/3 ML VIAL SC PRN ×2 (16:40→22:30)
[2021-01-12] MEDS: Albumin 25% 25 GM/100 ML BOT IVPB SCH (18:05)
[2021-01-12] MEDS: Senokot S 8.6-50 MG TAB PO PRN (18:06)
[2021-01-12] MEDS: Norepinephrine 8 MG/0.9% NS 250 ML IVPB SCH (18:11)
[2021-01-12] MEDS: Atorvastatin Calcium 20 MG TAB PO SCH (21:30)
[2021-01-12] MEDS: Propofol 1,000 MG/100 ML VIAL IV PRN (22:00)
[2021-01-13 04:53] LABS: Vancomycin, Random 18.4 ug/mL (See Comment)
[2021-01-13 05:06] LABS: Anion Gap 20 mmol/L (10-20)
[2021-01-13 05:13] LABS: Albumin 3.3 g/dL (3.4-4.8); BUN (Urea Nitrogen) 94 mg/dL (9.8-20.1); BUN/Creatinine Ratio 25.75; Calc. Creatinine Clearance 20 mL/min (70-130); Calcium 9.5 mg/dL (7.8-10.44); Carbon Dioxide 23 mmol/L (23-31); Chloride 100 mmol/L (98-107); Glucose 205 mg/dL (83-110); Phosphorus 2.2 mg/dL (2.3-4.7); Potassium 3.5 mmol/L (3.5-5.1); Sodium 139 mmol/L (136-145)
[2021-01-13] MEDS: Norepinephrine 8 MG/0.9% NS 250 ML IVPB SCH (06:30)
[2021-01-13] MEDS: Senokot S 8.6-50 MG TAB PO PRN (09:12)
[2021-01-13] MEDS: Aspirin 81 mg Enteric Coated Tablet PO SCH (09:12)
[2021-01-13] MEDS: Famotidine/PF 20 mg/2ml Vial SLOW IVP SCH (09:13)
[2021-01-13] MEDS: Meropenem 500 MG in Sodium Chloride 0.9% 100 ML IVPB SCH ×2 (09:13→21:01)
[2021-01-13] MEDS: Budesonide 0.25 MG/2 ML NEB INH SCH ×2 (09:18→19:29)
[2021-01-13] MEDS: Propofol 1,000 MG/100 ML VIAL IV PRN (09:42)
[2021-01-13] MEDS: Heparin 5,000 UNITS/ML VIAL SC SCH ×2 (10:30→21:30)
[2021-01-13] MEDS: HumaLOG 300 UNITS/3 ML VIAL SC PRN ×3 (10:31→22:30)
[2021-01-13] MEDS: Dexmedetomidine In 0.9 % NaCl 400 MCG in Premix Bag 1 BAG IVPB SCH (13:43)
[2021-01-13] MEDS: Albumin 25% 25 GM/100 ML BOT IVPB SCH (16:33)
[2021-01-13] MEDS: Atorvastatin Calcium 20 MG TAB PO SCH (21:20)
[2021-01-13] MEDS: Fentanyl CADD 100 ML IV SCH (21:30)
[2021-01-14] MEDS: Dexmedetomidine In 0.9 % NaCl 400 MCG in Premix Bag 1 BAG IVPB SCH ×2 (00:16→15:48)
[2021-01-14 05:01] LABS: Vancomycin, Random 18.5 ug/mL (See Comment)
[2021-01-14 05:03] LABS: Albumin 3.2 g/dL (3.4-4.8); Anion Gap 22 mmol/L (10-20); BUN (Urea Nitrogen) 115 mg/dL (9.8-20.1); BUN/Creatinine Ratio 27.98; Calc. Creatinine Clearance 18 mL/min (70-130); Calcium 9.5 mg/dL (7.8-10.44); Carbon Dioxide 20 mmol/L (23-31); Chloride 101 mmol/L (98-107); Glucose 209 mg/dL (83-110); Potassium 3.7 mmol/L (3.5-5.1); Sodium 139 mmol/L (136-145)
[2021-01-14 05:08] LABS: Phosphorus 1.8 mg/dL (2.3-4.7)
[2021-01-14] MEDS: HumaLOG 300 UNITS/3 ML VIAL SC PRN ×4 (05:13→22:02)
[2021-01-14] MEDS: Budesonide 0.25 MG/2 ML NEB INH SCH ×2 (07:19→19:28)
[2021-01-14] MEDS ORDERED: Albumin 25% 25 GM/100 ML BOT IVPB SCH ×2 (10:45→17:00)
[2021-01-14] MEDS: Heparin 5,000 UNITS/ML VIAL SC SCH ×2 (10:55→21:12)
[2021-01-14] MEDS: Famotidine/PF 20 mg/2ml Vial SLOW IVP SCH (10:55)
[2021-01-14] MEDS: Aspirin 81 mg Enteric Coated Tablet PO SCH (10:55)
[2021-01-14] MEDS: Meropenem 500 MG in Sodium Chloride 0.9% 100 ML IVPB SCH ×2 (10:56→21:13)
[2021-01-14] MEDS ORDERED: Vancomycin HCl 750 MG in Sodium Chloride 0.9% 250 ML 250 ML IVPB SCH (12:00)
[2021-01-14] MEDS: Norepinephrine 8 MG/0.9% NS 250 ML IVPB SCH (15:35)
[2021-01-14] MEDS: Scopolamine 1.5 mg/72 hour Patch TD SCH (15:53)
[2021-01-14] MEDS: Atorvastatin Calcium 20 MG TAB PO SCH (21:12)
[2021-01-15] MEDS: Fentanyl CADD 100 ML IV SCH (02:39)
[2021-01-15 04:35] LABS: Hemoglobin 9.5 g/dL (12.0-15.5); Mean Corpuscular HGB CONC 32.8 g/dL (32.0-36.0); Mean Corpuscular Hemoglobin 29.1 pg (27.0-33.0); Mean Platelet Volume 10.9 fl (7.4-10.4); Platelet Count 449 10x3/uL (150-450); RBC Distribution Width 14.9 % (11.5-14.5); Red Blood Cell (RBC) Count 3.26 10x6/uL (3.90-5.03); White Blood Cell (WBC) Count 26.1 10x3/uL (3.5-10.5)
[2021-01-15 04:41] LABS: Anion Gap 18 mmol/L (10-20); Globulin 1.9 g/dL (2.4-3.5)
[2021-01-15 04:44] LABS: ALT (SGPT) 8 U/L (8-55); AST (SGOT) 33 U/L (5-34); Albumin 3.3 g/dL (3.4-4.8); Alkaline Phosphatase 167 U/L (40-110); BUN (Urea Nitrogen) 114 mg/dL (9.8-20.1); BUN/Creatinine Ratio 27.47; Bilirubin, Total 0.6 mg/dL (0.2-1.2); Calc. Creatinine Clearance 17 mL/min (70-130); Calcium 10.1 mg/dL (7.8-10.44); Carbon Dioxide 24 mmol/L (23-31); Chloride 101 mmol/L (98-107); Glucose 251 mg/dL (83-110); Magnesium 1.9 mg/dL (1.6-2.6); Phosphorus 2.4 mg/dL (2.3-4.7); Potassium 3.6 mmol/L (3.5-5.1); Protein, Total 5.2 g/dL (5.8-8.1); Sodium 139 mmol/L (136-145)
[2021-01-15 04:53] LABS: MDiff Complete? YES
[2021-01-15 05:04] LABS: Band 16 % (5-11); Eosinophils 6 % (0-10); Lymphocytes 10 % (21-51); Metamyelocyte 11 % (0-0); Monocytes 11 % (0-10); Myelocyte 2 % (0-0); Neutrophil 44 % (42-75)
[2021-01-15 05:06] LABS: Anisocytosis SLIGHT = 6-15 cells (100X) (0-5/hpf); Hypochromia MODERATE=16-30 cells (100X) (0-5/hpf); Microcytosis SLIGHT = 6-15 cells (100X) (0-5/hpf); Poikilocytosis MODERATE=16-30 cells (100X) (0-5/hpf); Polychromasia SLIGHT = 2-3 cells (100X) (0-2/hpf); Reflex for Review?? YES
[2021-01-15 05:07] LABS: Giant Platelets SLIGHT; Platelet Morphology Comment Appears Increased
[2021-01-15] MEDS: HumaLOG 300 UNITS/3 ML VIAL SC PRN ×4 (05:57→21:39)
[2021-01-15 06:53] LABS: Vancomycin, Random 22.3 ug/mL (See Comment)
[2021-01-15] MEDS: Budesonide 0.25 MG/2 ML NEB INH SCH ×2 (07:20→18:32)
[2021-01-15 08:03] LABS: Actual Bicarbonate (HCO3a) 20.5 mEq/L (22-28); Base Excess (BEa) -2.6 mEq/L (-2.0 to +3.0); CO2 Tension 29.7 mmHg (35.0-45.0); Calcium, Ionized (arterial) 1.32 mmol/L (1.12-1.30); Carboxyhemoglobin (COHb) 0.3 gm% (0.0-3.0); Hemoglobin (Hb) 10.3 g/dL (12.0-16.0); O2 Tension (PaO2), arterial 98.8 mmHg (> 60.0); Potassium - ABG Lab 3.7 mmol/L (3.70-5.30); Puncture Site LBA; pH, Arterial 7.46 (7.35-7.45)
[2021-01-15 08:08] LABS: ALV-art Gradient 113.625 mmHg (0-20)
[2021-01-15 08:42] LABS: Fungus Stain Final report (.)
[2021-01-15] MEDS: Meropenem 500 MG in Sodium Chloride 0.9% 100 ML IVPB SCH ×2 (08:56→21:10)
[2021-01-15] MEDS: Aspirin 81 mg Enteric Coated Tablet PO SCH (08:57)
[2021-01-15] MEDS: Famotidine/PF 20 mg/2ml Vial SLOW IVP SCH (08:57)
[2021-01-15] MEDS: Heparin 5,000 UNITS/ML VIAL SC SCH ×2 (09:23→21:10)
[2021-01-15] MEDS: Norepinephrine 8 MG/0.9% NS 250 ML IVPB SCH (17:25)
[2021-01-15] MEDS: Atorvastatin Calcium 20 MG TAB PO SCH (21:11)
[2021-01-16 05:23] LABS: Vancomycin, Random 20.5 ug/mL (See Comment)
[2021-01-16] MEDS: Budesonide 0.25 MG/2 ML NEB INH SCH ×2 (07:17→19:20)
[2021-01-16 07:48] LABS: Actual Bicarbonate (HCO3a) 22.8 mEq/L (22-28); Base Excess (BEa) -1.9 mEq/L (-2.0 to +3.0); CO2 Tension 38.7 mmHg (35.0-45.0); Calcium, Ionized (arterial) 1.35 mmol/L (1.12-1.30); Carboxyhemoglobin (COHb) 0.3 gm% (0.0-3.0); Hemoglobin (Hb) 10.1 g/dL (12.0-16.0); O2 Tension (PaO2), arterial 108.1 mmHg (> 60.0); Potassium - ABG Lab 3.9 mmol/L (3.70-5.30); Puncture Site RBA; pH, Arterial 7.39 (7.35-7.45)
[2021-01-16 07:52] LABS: ALV-art Gradient 93.075 mmHg (0-20)
[2021-01-16 08:40] LABS: Anion Gap 19 mmol/L (10-20)
[2021-01-16 08:49] LABS: Hemoglobin 9.4 g/dL (12.0-15.5); Mean Corpuscular HGB CONC 32.4 g/dL (32.0-36.0); Mean Corpuscular Hemoglobin 29.8 pg (27.0-33.0); Mean Corpuscular Volume 92.1 fl (81.6-98.3); Mean Platelet Volume 10.5 fl (7.4-10.4); Platelet Count 486 10x3/uL (150-450); RBC Distribution Width 15.1 % (11.5-14.5); Red Blood Cell (RBC) Count 3.15 10x6/uL (3.90-5.03); White Blood Cell (WBC) Count 25.8 10x3/uL (3.5-10.5)
[2021-01-16 08:50] LABS: BUN (Urea Nitrogen) 122 mg/dL (9.8-20.1)
[2021-01-16 09:09] LABS: Albumin 3.1 g/dL (3.4-4.8); BUN/Creatinine Ratio 27.59; Calc. Creatinine Clearance 15 mL/min (70-130); Calcium 10.2 mg/dL (7.8-10.44); Carbon Dioxide 24 mmol/L (23-31); Chloride 99 mmol/L (98-107); Glucose 239 mg/dL (83-110); Phosphorus 3.5 mg/dL (2.3-4.7); Potassium 4.1 mmol/L (3.5-5.1); Sodium 138 mmol/L (136-145)
[2021-01-16 09:13] LABS: MDiff Complete? YES
[2021-01-16 09:17] LABS: Band 9 % (5-11); Eosinophils 4 % (0-10); Lymphocytes 16 % (21-51); Metamyelocyte 1 % (0-0); Myelocyte 1 % (0-0); Neutrophil 60 % (42-75)
[2021-01-16] MEDS: Famotidine/PF 20 mg/2ml Vial SLOW IVP SCH (09:17)
[2021-01-16] MEDS: Aspirin 81 mg Enteric Coated Tablet PO SCH (09:17)
[2021-01-16 09:18] LABS: Monocytes 8 % (0-10)
[2021-01-16] MEDS: Heparin 5,000 UNITS/ML VIAL SC SCH ×2 (09:18→22:03)
[2021-01-16 09:19] LABS: Platelet Morphology Comment Appears Increased
[2021-01-16 09:22] LABS: Dohle Bodies SLIGHT
[2021-01-16] MEDS: Meropenem 500 MG in Sodium Chloride 0.9% 100 ML IVPB SCH ×2 (09:30→22:03)
[2021-01-16] MEDS: Norepinephrine 8 MG/0.9% NS 250 ML IVPB SCH (12:55)
[2021-01-16] MEDS ORDERED: Albumin 25% 25 GM/100 ML BOT IVPB PRN (13:29)
[2021-01-16] MEDS: HumaLOG 300 UNITS/3 ML VIAL SC PRN (16:48)
[2021-01-16] MEDS: Atorvastatin Calcium 20 MG TAB PO SCH (22:02)
[2021-01-16] MEDS: Senokot S 8.6-50 MG TAB PO PRN (22:03)
[2021-01-17 05:06] LABS: Vancomycin, Random 16.1 ug/mL (See Comment)
[2021-01-17 05:09] LABS: Anion Gap 17 mmol/L (10-20)
[2021-01-17 05:33] LABS: Hemoglobin 8.3 g/dL (12.0-15.5); Mean Corpuscular HGB CONC 30.6 g/dL (32.0-36.0); Mean Corpuscular Volume 94.8 fl (81.6-98.3); Mean Platelet Volume 10.8 fl (7.4-10.4); Platelet Count 440 10x3/uL (150-450); RBC Distribution Width 15.3 % (11.5-14.5); Red Blood Cell (RBC) Count 2.86 10x6/uL (3.90-5.03); White Blood Cell (WBC) Count 22.6 10x3/uL (3.5-10.5)
[2021-01-17 05:38] LABS: Albumin 3.6 g/dL (3.4-4.8); BUN (Urea Nitrogen) 111 mg/dL (9.8-20.1); BUN/Creatinine Ratio 29.21; Calc. Creatinine Clearance 18 mL/min (70-130); Calcium 9.5 mg/dL (7.8-10.44); Carbon Dioxide 25 mmol/L (23-31); Chloride 98 mmol/L (98-107); Glucose 206 mg/dL (83-110); Phosphorus 4.3 mg/dL (2.3-4.7); Potassium 4.3 mmol/L (3.5-5.1); Sodium 136 mmol/L (136-145)
[2021-01-17 06:19] LABS: Band 7 % (5-11); Eosinophils 3 % (0-10); Lymphocytes 11 % (21-51); Metamyelocyte 4 % (0-0); Monocytes 7 % (0-10); Myelocyte 4 % (0-0); Neutrophil 64 % (42-75)
[2021-01-17 06:29] LABS: Anisocytosis MODERATE=16-30 cells (100X) (0-5/hpf); Macrocytosis SLIGHT = 6-15 cells (100X) (0-5/hpf); Microcytosis SLIGHT = 6-15 cells (100X) (0-5/hpf)
[2021-01-17 06:30] LABS: Giant Platelets SLIGHT; Large Platelets MODERATE; Platelet Clumps SLIGHT
[2021-01-17 06:31] LABS: Hypochromia SLIGHT = 6-15 cells (100X) (0-5/hpf); Platelet Morphology Comment Appears Increased
[2021-01-17 06:32] LABS: MDiff Complete? YES; Manual Diff?? YES
[2021-01-17] MEDS: Budesonide 0.25 MG/2 ML NEB INH SCH ×2 (07:31→19:57)
[2021-01-17] MEDS: Famotidine/PF 20 mg/2ml Vial SLOW IVP SCH (09:06)
[2021-01-17] MEDS: Aspirin 81 mg Enteric Coated Tablet PO SCH (09:07)
[2021-01-17] MEDS: Heparin 5,000 UNITS/ML VIAL SC SCH ×2 (09:08→21:35)
[2021-01-17] MEDS: Meropenem 500 MG in Sodium Chloride 0.9% 100 ML IVPB SCH ×2 (09:08→21:36)
[2021-01-17] MEDS: HumaLOG 300 UNITS/3 ML VIAL SC PRN ×3 (09:08→16:06)
[2021-01-17] MEDS: Atorvastatin Calcium 20 MG TAB PO SCH (21:34)
[2021-01-17] MEDS: Senokot S 8.6-50 MG TAB PO PRN (21:37)
[2021-01-18 05:01] LABS: Vancomycin, Random 16.3 ug/mL (See Comment)
[2021-01-18 05:03] LABS: Albumin 3.2 g/dL (3.4-4.8); Anion Gap 18 mmol/L (10-20); Calc. Creatinine Clearance 17 mL/min (70-130); Calcium 9.2 mg/dL (7.8-10.44); Carbon Dioxide 23 mmol/L (23-31); Chloride 99 mmol/L (98-107); Glucose 195 mg/dL (83-110); Phosphorus 4.9 mg/dL (2.3-4.7); Potassium 4.5 mmol/L (3.5-5.1); Sodium 135 mmol/L (136-145)
[2021-01-18 05:27] LABS: BUN (Urea Nitrogen) 123 mg/dL (9.8-20.1); BUN/Creatinine Ratio 29.71
[2021-01-18] MEDS: Budesonide 0.25 MG/2 ML NEB INH SCH ×2 (07:49→19:10)
[2021-01-18] MEDS ORDERED: Vancomycin HCl 750 MG in Sodium Chloride 0.9% 250 ML 250 ML IVPB PRN (08:02)
[2021-01-18] MEDS: HumaLOG 300 UNITS/3 ML VIAL SC PRN ×4 (09:10→20:39)
[2021-01-18] MEDS: Aspirin 81 mg Enteric Coated Tablet PO SCH (09:25)
[2021-01-18] MEDS: Famotidine/PF 20 mg/2ml Vial SLOW IVP SCH (09:25)
[2021-01-18] MEDS: Heparin 5,000 UNITS/ML VIAL SC SCH ×2 (09:26→20:40)
[2021-01-18 09:41] VITALS: BMI 35.6
[2021-01-18] MEDS: Meropenem 500 MG in Sodium Chloride 0.9% 100 ML IVPB SCH ×2 (09:50→20:40)
[2021-01-18] MEDS ORDERED: EPOETIN ALFA-EPBX (ESRD) 4,000 UNIT/ML VIAL IVP PRN (10:03)
[2021-01-18] MEDS: Polyethylene Glycol 3350 17 GM Packet PER TUBE SCH (12:13)
[2021-01-18] MEDS: Atorvastatin Calcium 20 MG TAB PO SCH (20:40)
[2021-01-19 04:44] LABS: Vancomycin, Random 14.4 ug/mL (See Comment)
[2021-01-19 04:45] LABS: Albumin 3.2 g/dL (3.4-4.8); Anion Gap 13 mmol/L (10-20); BUN (Urea Nitrogen) 65 mg/dL (9.8-20.1); BUN/Creatinine Ratio 25.59; Calc. Creatinine Clearance 27 mL/min (70-130); Carbon Dioxide 29 mmol/L (23-31); Chloride 97 mmol/L (98-107); Glucose 210 mg/dL (83-110); Potassium 3.6 mmol/L (3.5-5.1); Sodium 135 mmol/L (136-145)
[2021-01-19] MEDS ORDERED: Fentanyl BOLUS 250 ML IVPB PRN (07:10)
[2021-01-19] MEDS: HumaLOG 300 UNITS/3 ML VIAL SC PRN ×4 (07:40→22:00)
[2021-01-19] MEDS: Budesonide 0.25 MG/2 ML NEB INH SCH ×2 (08:04→19:46)
[2021-01-19] MEDS: Polyethylene Glycol 3350 17 GM Packet PER TUBE SCH (08:51)
[2021-01-19] MEDS: Aspirin 81 mg Enteric Coated Tablet PO SCH (08:53)
[2021-01-19] MEDS: Famotidine/PF 20 mg/2ml Vial SLOW IVP SCH (08:54)
[2021-01-19] MEDS: Heparin 5,000 UNITS/ML VIAL SC SCH ×2 (09:33→21:11)
[2021-01-19] MEDS: Atorvastatin Calcium 20 MG TAB PO SCH (21:11)
[2021-01-20 04:30] LABS: Hemoglobin 8.9 g/dL (12.0-15.5); Mean Corpuscular HGB CONC 30.1 g/dL (32.0-36.0); Mean Corpuscular Hemoglobin 29.2 pg (27.0-33.0); Mean Platelet Volume 10.3 fl (7.4-10.4); Platelet Count 632 10x3/uL (150-450); RBC Distribution Width 15.6 % (11.5-14.5); Red Blood Cell (RBC) Count 3.05 10x6/uL (3.90-5.03); White Blood Cell (WBC) Count 27.6 10x3/uL (3.5-10.5)
[2021-01-20 04:34] LABS: Vancomycin, Random 12.9 ug/mL (See Comment)
[2021-01-20 04:35] LABS: Anion Gap 14 mmol/L (10-20); Globulin 2.5 g/dL (2.4-3.5)
[2021-01-20 04:51] LABS: ALT (SGPT) 7 U/L (8-55); AST (SGOT) 25 U/L (5-34); Albumin 3.1 g/dL (3.4-4.8); Alkaline Phosphatase 225 U/L (40-110); BUN (Urea Nitrogen) 82 mg/dL (9.8-20.1); BUN/Creatinine Ratio 26.45; Bilirubin, Total 0.3 mg/dL (0.2-1.2); Calc. Creatinine Clearance 23 mL/min (70-130); Calcium 9.5 mg/dL (7.8-10.44); Carbon Dioxide 29 mmol/L (23-31); Chloride 96 mmol/L (98-107); Glucose 271 mg/dL (83-110); Magnesium 2.2 mg/dL (1.6-2.6); Phosphorus 5.1 mg/dL (2.3-4.7); Potassium 3.8 mmol/L (3.5-5.1); Protein, Total 5.6 g/dL (5.8-8.1); Sodium 135 mmol/L (136-145)
[2021-01-20 05:27] LABS: Band 6 % (5-11); Lymphocytes 10 % (21-51); Monocytes 12 % (0-10); Neutrophil 67 % (42-75); Reactive Lymphocytes 5 % (0-10)
[2021-01-20 05:28] LABS: Anisocytosis MODERATE=16-30 cells (100X) (0-5/hpf)
[2021-01-20 05:29] LABS: Hypochromia SLIGHT = 6-15 cells (100X) (0-5/hpf); Macrocytosis SLIGHT = 6-15 cells (100X) (0-5/hpf); Microcytosis SLIGHT = 6-15 cells (100X) (0-5/hpf)
[2021-01-20 05:30] LABS: Platelet Morphology Comment Appears Increased
[2021-01-20 05:38] LABS: Basophilic Stippling SLIGHT = 1-2 cells (100X) (None Seen); Large Platelets MODERATE; Platelet Clumps SLIGHT
[2021-01-20 05:40] LABS: MDiff Complete? YES; Manual Diff?? YES
[2021-01-20] MEDS: Budesonide 0.25 MG/2 ML NEB INH SCH ×2 (07:45→19:41)
[2021-01-20] MEDS: Heparin 5,000 UNITS/ML VIAL SC SCH ×2 (08:42→21:05)
[2021-01-20] MEDS: Famotidine/PF 20 mg/2ml Vial SLOW IVP SCH (08:42)
[2021-01-20] MEDS: HumaLOG 300 UNITS/3 ML VIAL SC PRN ×2 (08:43→12:50)
[2021-01-20] MEDS: Polyethylene Glycol 3350 17 GM Packet PER TUBE SCH (09:55)
[2021-01-20] MEDS: Aspirin 81 mg Enteric Coated Tablet PO SCH (09:57)
[2021-01-20 11:34] LABS: Actual Bicarbonate (HCO3a) 26.1 mEq/L (22-28); CO2 Tension 63.4 mmHg (35.0-45.0); Calcium, Ionized (arterial) 1.29 mmol/L (1.12-1.30); Hemoglobin (Hb) 10.1 g/dL (12.0-16.0); O2 Tension (PaO2), arterial 68.7 mmHg (> 60.0); Potassium - ABG Lab 3.8 mmol/L (3.70-5.30); Puncture Site LRA; pH, Arterial 7.23 (7.35-7.45)
[2021-01-20] MEDS ORDERED: Morphine 2 MG/ML VIAL SLOW IVP PRN (12:42)
[2021-01-20] MEDS ORDERED: Lorazepam 2 MG/ML VIAL SLOW IVP PRN (12:43)
[2021-01-20] MEDS ORDERED: Dexmedetomidine In 0.9 % NaCl 400 MCG in Premix Bag 1 BAG IVPB SCH (12:45)
[2021-01-20] MEDS ORDERED: Vancomycin HCl 1 GM in Sodium Chloride 0.9% 250 ML 250 ML IVPB SCH (17:00)
[2021-01-20] MEDS: Atorvastatin Calcium 20 MG TAB PO SCH (21:05)
[2021-01-21 03:48] LABS: #Basophils 0.1 10x3/uL (0.0-0.2); #Eosinphils 0.2 10x3/uL (0.0-0.5); #Monocytes 1.6 10x3/uL (0.0-1.1); #Neutrophils 19.4 10x3/uL (1.5-8.4); %Basophils 0.4 % (0.0-2.0); %Eosinophils 0.9 % (0.0-6.0); %Lymphocytes 12.5 % (18.0-47.0); %Monocytes 6.4 % (0.0-10.0); %Neutrophils 78.3 % (40.0-75.0); Hemoglobin 8.4 g/dL (12.0-15.5); Mean Corpuscular HGB CONC 31.7 g/dL (32.0-36.0); Mean Corpuscular Hemoglobin 29.5 pg (27.0-33.0); Mean Platelet Volume 10.3 fl (7.4-10.4); Platelet Count 640 10x3/uL (150-450); RBC Distribution Width 15.3 % (11.5-14.5); Red Blood Cell (RBC) Count 2.85 10x6/uL (3.90-5.03); White Blood Cell (WBC) Count 24.7 10x3/uL (3.5-10.5)
[2021-01-21 04:01] LABS: Vancomycin, Random 13.5 ug/mL (See Comment)
[2021-01-21 04:04] LABS: ALT (SGPT) 9 U/L (8-55); AST (SGOT) 27 U/L (5-34); Albumin 2.9 g/dL (3.4-4.8); Alkaline Phosphatase 207 U/L (40-110); Anion Gap 17 mmol/L (10-20); BUN (Urea Nitrogen) 97 mg/dL (9.8-20.1); Bilirubin, Total 0.4 mg/dL (0.2-1.2); Calc. Creatinine Clearance 22 mL/min (70-130); Calcium 8.9 mg/dL (7.8-10.44); Carbon Dioxide 26 mmol/L (23-31); Chloride 96 mmol/L (98-107); Globulin 2.2 g/dL (2.4-3.5); Glucose 191 mg/dL (83-110); Potassium 3.9 mmol/L (3.5-5.1); Protein, Total 5.1 g/dL (5.8-8.1); Sodium 135 mmol/L (136-145)
[2021-01-21 04:18] LABS: ALV-art Gradient 115.025 mmHg (0-20); Actual Bicarbonate (HCO3a) 25.2 mEq/L (22-28); Base Excess (BEa) -0.3 mEq/L (-2.0 to +3.0); CO2 Tension 44.9 mmHg (35.0-45.0); Calcium, Ionized (arterial) 1.23 mmol/L (1.12-1.30); Hemoglobin (Hb) 9.6 g/dL (12.0-16.0); O2 Tension (PaO2), arterial 78.4 mmHg (> 60.0); Potassium - ABG Lab 3.8 mmol/L (3.70-5.30); Puncture Site RRA; pH, Arterial 7.37 (7.35-7.45)
[2021-01-21 04:51] VITALS: BP 117/83; TEMP 98.3
[2021-01-21] MEDS: Budesonide 0.25 MG/2 ML NEB INH SCH (07:36)
[2021-01-21] MEDS: HumaLOG 300 UNITS/3 ML VIAL SC PRN ×2 (08:30→11:57)
[2021-01-21] MEDS: Famotidine/PF 20 mg/2ml Vial SLOW IVP SCH (09:31)
[2021-01-21] MEDS: Polyethylene Glycol 3350 17 GM Packet PER TUBE SCH (09:32)
[2021-01-21] MEDS: Aspirin 81 mg Enteric Coated Tablet PO SCH (09:32)
[2021-01-21] MEDS: Heparin 5,000 UNITS/ML VIAL SC SCH (09:32)
[2021-02-06 16:11] LABS: Fungus Culture Final report (.)
== END 2021-01-21 15:48 | disposition hospice, home (50) | DRG 291 ==
LOC: CSHERS 09:18 → CSHIMCU 13:48 → CSHTELE 01-04 16:42 → CSHIMCU 01-07 14:01
PROVIDERS: ADMIT Emergency Medicine; ATTEND Internal Medicine
PROC: 06HY33Z Insertion of Infusion Device into Lower Vein, Percutaneous Approach (ICD-10-PCS; principal; 2021-01-03)
PROC: 5A1D70Z Performance of Urinary Filtration, Intermittent, Less than 6 Hours Per Day (ICD-10-PCS; 2021-01-03)
PROC: 3E053XZ Introduction of Vasopressor into Peripheral Artery, Percutaneous Approach (ICD-10-PCS; 2021-01-08)
PROC: 0W9B3ZZ Drainage of Left Pleural Cavity, Percutaneous Approach (ICD-10-PCS; 2021-01-08)
PROC: 0W9B30Z Drainage of Left Pleural Cavity with Drainage Device, Percutaneous Approach (ICD-10-PCS; 2021-01-08)
PROC: 5A12012 Performance of Cardiac Output, Single, Manual (ICD-10-PCS; 2021-01-08)
PROC: 0BH17EZ Insertion of Endotracheal Airway into Trachea, Via Natural or Artificial Opening (ICD-10-PCS; 2021-01-08)
PROC: 5A1945Z Respiratory Ventilation, 24-96 Consecutive Hours (ICD-10-PCS; 2021-01-08)
PROC: 02HV33Z Insertion of Infusion Device into Superior Vena Cava, Percutaneous Approach (ICD-10-PCS; 2021-01-12)
PROC: 0BH17EZ Insertion of Endotracheal Airway into Trachea, Via Natural or Artificial Opening (ICD-10-PCS; 2021-01-12)
PROC: 5A1945Z Respiratory Ventilation, 24-96 Consecutive Hours (ICD-10-PCS; 2021-01-12)
PROC: 5A09457 Assistance with Respiratory Ventilation, 24-96 Consecutive Hours, Continuous Positive Airway Pressure (ICD-10-PCS; 2021-01-14)
DX: I13.0 Hypertensive heart and chronic kidney disease with heart failure and stage 1 through stage 4 chronic kidney disease, or unspecified chronic kidney disease (principal); I50.33 Acute on chronic diastolic (congestive) heart failure; J95.811 Postprocedural pneumothorax; J96.22 Acute and chronic respiratory failure with hypercapnia; J96.21 Acute and chronic respiratory failure with hypoxia; N17.0 Acute kidney failure with tubular necrosis; R65.21 Severe sepsis with septic shock; G93.41 Metabolic encephalopathy; A41.81 Sepsis due to Enterococcus; L03.116 Cellulitis of left lower limb; J98.11 Atelectasis; N18.5 Chronic kidney disease, stage 5; N39.0 Urinary tract infection, site not specified; J90 Pleural effusion, not elsewhere classified; E87.3 Alkalosis; I97.121 Postprocedural cardiac arrest following other surgery; T82.898A Other specified complication of vascular prosthetic devices, implants and grafts, initial encounter; E87.2 Acidosis; L03.311 Cellulitis of abdominal wall; Z51.5 Encounter for palliative care; I27.20 Pulmonary hypertension, unspecified; R62.7 Adult failure to thrive; D63.1 Anemia in chronic kidney disease; E86.1 Hypovolemia; E11.22 Type 2 diabetes mellitus with diabetic chronic kidney disease; T17.990A Other foreign object in respiratory tract, part unspecified in causing asphyxiation, initial encounter; E87.5 Hyperkalemia; E78.5 Hyperlipidemia, unspecified; E66.01 Morbid (severe) obesity due to excess calories; R13.10 Dysphagia, unspecified; E78.00 Pure hypercholesterolemia, unspecified; I48.0 Paroxysmal atrial fibrillation; Z66 Do not resuscitate; Z53.29 Procedure and treatment not carried out because of patient's decision for other reasons; Z68.37 Body mass index [BMI] 37.0-37.9, adult; Z79.82 Long term (current) use of aspirin; Z79.899 Other long term (current) drug therapy; Z85.3 Personal history of malignant neoplasm of breast; Z85.42 Personal history of malignant neoplasm of other parts of uterus; Z79.84 Long term (current) use of oral hypoglycemic drugs; Z78.1 Physical restraint status; Z20.822 Contact with and (suspected) exposure to COVID-19
CPT/HCPCS: 0240U; 36415; 36416; 36600; 51702; 71045; 74018; 76942; 80048; 80053; 80069; 80202; 81001; 81003; 81015; 82140; 82150; 82553; 82805; 82945; 83605; 83615; 83735; 83880; 84100; 84157; 84443; 84484; 85025; 85060; 85610; 85730; 86704; 86706; 86803; 86850; 86900; 86901; 87040; 87070; 87077; 87086; 87116; 87186; 87205; 87206; 87340; 88112; 89051; 90935; 93005; 93010; 94002; 94003; 94640; 94660; 94760; 96374; 96375; G0257; J1644; J1650; J1815; J1940; J2185; J2270; J2405; J2704; J2997; J3010; J3370; J3486; J3490; J7050; J7626; P9047; S0028